=== PATIENT | male | born 1945 | race Caucasian/White ===

== ENCOUNTER 2023-02-20 18:12 | Emergency (ER) | payer MEDICARE, MEDICAID, SELFPAY ==
[2023-02-20 18:12] VITALS: BP 111/68; PULSE 77; RESP 18; TEMP 35.8; O2SAT 97; BMI 25.1
--- NOTE | 2023-02-20 18:36 | EX.ED.DYSGE1 ---
HPI <MEAGAN Terrell - Last Filed: 02/20/23 19:50> History of Present Illness Chief Complaint: Lower Extremity Injury Narrative Narrative: Patient presenting today with pain to his right thigh that he has had since Monday evening. He reports that Monday afternoon he was digging out a stump in his yard and thinks that he might of pulled a muscle. His symptoms are relieved with rest and aggravated by ambulation. He denies any injury to his leg. He is able to ambulate without difficulty. He has been taking Tylenol and a muscle relaxer with minimal relief of his symptoms. He denies any other injury. [facility] <MEAGAN Terrell - Last Filed: 02/20/23 19:50> [facility] Home Medications aspirin 81 mg tablet,delayed release (Adult Low Dose Aspirin) 81 mg PO DAILY 03/30/16 [History Last Taken 03/30/16 09:00] carvedilol 6.25 mg tablet 6.25 mg PO BID 03/30/16 [History Last Taken 03/30/16 09:00] lisinopril 5 mg tablet 5 mg PO DAILY 03/30/16 [History Last Taken 03/30/16 09:00] pravastatin 80 mg tablet 80 mg PO QHS 03/30/16 [History Last Taken 03/29/16 19:30] cefdinir 300 mg capsule 300 mg PO Q12H ##14 04/04/16 [Rx Last Taken Unknown] naproxen 500 mg tablet (Naprosyn) 500 mg PO BID PRN pain 7 days #14 tabs 02/20/23 [Rx Last Taken Unknown] Allergy/AdvReac Type Severity Reaction Status Date / Time No Known Allergies Allergy Verified 02/20/23 18:14 Social History Smoking Status: Current every day smoker tobacco type: cigarettes ROS <MEAGAN Terrell - Last Filed: 02/20/23 19:50> ROS ED Constitutional Constitutional ED: Denies chills or fever(s) Cardiovascular Cardiovascular: Denies chest pain or palpitations Respiratory/Chest Respiratory/Chest: Denies cough or dyspnea Gastrointestinal Gastrointestinal: Denies abdominal pain, nausea or vomiting Musculoskeletal Musculoskeletal: Reports myalgias; Denies arthralgias Integumentary Denies Abrasions Neurologic Neurologic: Denies paresthesias or weakness EXAM <MEAGAN Terrell - Last Filed: 02/20/23 19:50> Physical Exam Const Vital Signs: 02/20/23 18:12 Temperature 96.5 F L Temperature Source Temporal Pulse Rate 77 Respiratory Rate 18 Blood Pressure 111/68 Blood Pressure Mean 82 Pulse Ox 97 Oxygen Delivery Method Room Air Positive well nourished, well developed and no apparent distress General Appearance ED: well developed HEENT Reports normocephalic and head/scalp atraumatic Mouth ED: Yes moist mucous membranes normal Eyes PERRL and EOMs intact bilaterally Neck full ROM and supple Chest Wall inspection of chest normal Resp normal respiratory effort and clear to auscultation bilaterally Cardio regular rate and regular rhythm GI soft to palpation, non-tender, non-distended and no masses Back/Spine normal ROM and normal to inspection Extremity normal to inspection and full ROM Extremity Narrative: Pain to palpation to the mid anterior right thigh. Neuro oriented x3, CN's II-XII intact bilaterally, moves all extremities, no focal motor deficits and no sensory deficits noted Sensorium / Orientation: awake and alert Psych mental status grossly normal and thought process normal Skin no rashes or lesions noted and no wounds <Dr. Maye Myles, - Last Filed: 02/23/23 15:12> Physical Exam Const Vital Signs: 02/20/23 18:12 Temperature 96.5 F L Temperature Source Temporal Pulse Rate 77 Respiratory Rate 18 Blood Pressure 111/68 Blood Pressure Mean 82 Pulse Ox 97 Oxygen Delivery Method Room Air MDM <MEAGAN Terrell - Last Filed: 02/20/23 19:50> [facility] Narrative Medical decision making narrative: Patient presenting today with pain to his right thigh, his pain is consistent with pain along the IT band. It started after he was trying to did up a stump in his yard on Monday. He is able to ambulate. Patient is well-appearing and in no acute distress, vitals are unremarkable. This does not seem consistent with a DVT. I do not feel that any imaging is indicated as patient did not have any injury to his leg. There is no edema, ecchymosis, or erythema to the leg. No signs of infection. Patient is able to flex and extend his knee and right hip. He will be given naproxen here and a prescription for naproxen. He is to follow-up with his PCP and will be discharged home in stable condition. He is comfortable with plan. <Dr. Maye Myles, DO - Last Filed: 02/23/23 15:12> [facility] Narrative Medical decision making narrative: Patient presenting today with pain to his right thigh, his pain is consistent with pain along the IT band. It started after he was trying to did up a stump in his yard on Monday. He is able to ambulate. Patient is well-appearing and in no acute distress, vitals are unremarkable. This does not seem consistent with a DVT. I do not feel that any imaging is indicated as patient did not have any injury to his leg. There is no edema, ecchymosis, or erythema to the leg. No signs of infection. Patient is able to flex and extend his knee and right hip. He will be given naproxen here and a prescription for naproxen. He is to follow-up with his PCP and will be discharged home in stable condition. He is comfortable with plan. I have personally performed a face to face assessment of the patient and have reviewed the MARY GRACE Note. I performed a substantive portion of the visit including all aspects of the following. My mai findings include: History is patient is a 77 year old male presenting with right leg pain. It developed after he was working in the yard and digging out roots. The pain is along his right IT band and reproducible with direct palpation. No obvious deformity and he has good distal pulses. No peripheral edema or palpable cords. Low suspicion for DVT. He has preserved strength and intact extensor mechanism. Counseled on suspected diagnosis and RICE therapy. discoussed alternating Tylenol with NSAIDs. At this time does not require admission for debility or intractable pain. I do not thing imaging is indicated at this time. DC home with PCP follow up. Other additions or changes: [None] Discharge Plan Triage Chief Complaint: Lower Extremity Injury ED Midlevel Provider: Viridiana Minaya ED Provider: Maye Myles Dx/Rx/DC Orders Clinical Impression: Right thigh pain, Strain of other specified muscles, fascia and tendons at thigh level, right thigh, initial encounter Instructions: ED Myalgias Prescriptions: New naproxen [Naprosyn] 500 mg tablet 500 mg PO BID PRN (Reason: pain) 7 Days Qty: 14 0RF No Action carvedilol 6.25 MG tablet 6.25 mg PO BID Patient Comments: heart/blood pressure aspirin [Adult Low Dose Aspirin] 81 MG tablet,delayed release (DR/EC) 81 mg PO DAILY Patient Comments: heart health pravastatin 80 MG tablet 80 mg PO QHS Patient Comments: cholesterol lisinopril 5 MG tablet 5 mg PO DAILY Patient Comments: blood pressure cefdinir 300 MG capsule 300 mg PO Q12H Qty: 14 0RF Rx Instructions: take one po bid Primary Care Provider: Aditi Arizmendi Referrals: Aditi Arizmendi MD [Primary Care Provider] - 3-5 Days if not improving Activity Restrictions/Additional Instructions: Follow-up with your PCP, return for any worsening of your symptoms, you can try muscle rubs as well for your symptoms. Disposition Disposition: Home, Self Care Discharge Date/Time: 02/20/23 19:20
[2023-02-20] MEDS: Naproxen 250 MG Tablet 500 MG PO (19:18)
== END 2023-02-20 19:20 | disposition home or self-care (01) ==
PROVIDERS: Emergency Provider Emergency Medicine; PCP Internal Medicine; Visit Provider Emergency Medicine
DX: S76.911A Strain of unspecified muscles, fascia and tendons at thigh level, right thigh, initial encounter (principal); F17.210 Nicotine dependence, cigarettes, uncomplicated; X58.XXXA Exposure to other specified factors, initial encounter
CPT/HCPCS: 99283